=== PATIENT | female | born 2000 | race Caucasian/White ===

== ENCOUNTER 2024-01-15 14:14 | Emergency (ER) | payer BC ==
[2024-01-15 15:20] LABS: BASOPHILS PERCENT AUTO 0.1 % (0.1-1.3); EOSINOPHILS ABSOLUTE AUTO 0.08 K/uL (0.00-0.40); EOSINOPHILS PERCENT AUTO 0.9 % (0.0-5.4); HEMATOCRIT 28.7 % (34.3-46.0); HEMOGLOBIN 10.4 g/dL (11.2-15.5); IMMATURE GRAN ABSOLUTE AUTO 0.07 K/uL (0.00-0.23); IMMATURE GRAN PERCENT AUTO 0.8 % (0.0-0.7); LYMPHOCYTES ABSOLUTE AUTO 1.44 K/uL (0.8-3.3); LYMPHOCYTES PERCENT AUTO 15.9 % (11.4-47.7); MEAN CORPUSCULAR HEMOGLOBIN 32.5 pg (31.6-35.5); MEAN CORPUSCULAR HGB CONC 36.2 g/dL (31.6-35.5); MEAN CORPUSCULAR VOLUME 89.7 fL (81.4-99.0); MONOCYTES ABSOLUTE AUTO 0.66 K/uL (0.20-0.90); MONOCYTES PERCENT AUTO 7.3 % (3.3-12.6); NEUTROPHILS ABSOLUTE AUTO 6.77 K/uL (1.0-7.6); PLATELET COUNT,PLT 263 K/uL (130-375)
[2024-01-15 15:21] LABS: BASOPHILS ABSOLUTE AUTO 0.01 K/uL (0.00-0.10)
[2024-01-15] MEDS: Sodium Chloride 0.9% 1,000 ML IV ONE ×2 (15:21→16:23)
[2024-01-15] MEDS: Sodium Chloride 0.9% 10 ML Syringe FLUSH PRN (15:21)
[2024-01-15] MEDS: Ondansetron 4 MG/2 ML SDV IVPUSH ONE (15:21)
[2024-01-15 15:36] LABS: CALCIUM 9.2 mg/dL (8.5-10.1); CREATININE 0.5 mg/dL (0.6-1.0); EST CRCL DRUG DOSING (CG) 137.22 mL/min; POTASSIUM,K 3.7 mmol/L (3.6-5.2)
[2024-01-15 15:39] LABS: ANION GAP 11.7 mmol/L (5.0-14.0)
[2024-01-15] MEDS: Acetaminophen 500 MG Tab PO ONE (16:16)
[2024-01-15] MEDS: diphenhydrAMINE 50 MG/ML SDV IVPUSH ONE (16:27)
== END 2024-01-15 18:35 | disposition home or self-care (01) ==
LOC: JP.ED 14:14
DX: O21.9 Vomiting of pregnancy, unspecified (principal); O99.891 Other specified diseases and conditions complicating pregnancy; R51.9 Headache, unspecified; Z3A.15 15 weeks gestation of pregnancy; Z79.899 Other long term (current) drug therapy
CPT/HCPCS: 36415; 80048; 85025; 96361; 96374; 96375; 99284; A9270; J1200; J2405; J3490; J7030; 99283